=== PATIENT | male | born 1980 | race Caucasian/White ===

== ENCOUNTER 2024-06-14 03:10 | Inpatient (IN) | payer BC ==
[2024-06-14] MEDS ORDERED: Morphine 4 MG/ML VIAL ONE ×2 (03:27→08:03)
[2024-06-14] MEDS ORDERED: Ondansetron PF 4 MG/2 ML Vial ONE (03:27)
[2024-06-14] MEDS ORDERED: Lidocaine Viscous Sol 2% 15 ml UD Cup ONE (03:41)
[2024-06-14] MEDS ORDERED: Mag-Al 1200 mg/1200 mg/30 ML UDCUP ONE (03:41)
[2024-06-14 03:42] LABS: #Basophils 0.06 10x3/uL (0.0-0.2); #Eosinophils 0.19 10x3/uL (0.0-0.5); #Monocytes 0.85 10x3/uL (0.0-1.1); #Neutrophils 4.65 10x3/uL (1.5-8.4); %Basophils 0.7 % (0.0-2.0); %Eosinophils 2.2 % (0.0-6.0); %Lymphocytes 32.8 % (18.0-47.0); %Monocytes 9.9 % (0.0-10.0); %Neutrophils 54.2 % (40.0-75.0); Hematocrit 44.3 % (38.8-50.0); Hemoglobin 14.8 g/dL (13.5-17.5); Mean Corpuscular HGB CONC 33.4 g/dL (32.0-36.0); Mean Corpuscular Hemoglobin 28.2 pg (27.0-33.0); Mean Corpuscular Volume 84.4 fL (81.2-95.1); Platelet Count 214 10x3/uL (150-450); RBC Distribution Width 12.3 % (11.5-14.5); Red Blood Cell (RBC) Count 5.25 10x6/uL (4.32-5.72); White Blood Cell (WBC) Count 8.6 10x3/uL (3.5-10.5)
[2024-06-14 04:05] LABS: ALT (SGPT) 53 U/L (8-55); AST (SGOT) 42 U/L (5-34); Albumin 4.5 g/dL (3.5-5.0); Alkaline Phosphatase 46 U/L (40-110); Anion Gap 16 mmol/L (10-20); BUN (Urea Nitrogen) 22 mg/dL (8.9-20.6); Bilirubin, Total 1.4 mg/dL (0.2-1.2); Calc. Creatinine Clearance 0 mL/min (70-130); Calcium 9.5 mg/dL (7.8-10.44); Carbon Dioxide 20 mmol/L (22-29); Chloride 106 mmol/L (98-107); Estimated GFR 95; Globulin 2.6 g/dL (2.4-3.5); Glucose 123 mg/dL (70-105); Lipase 30 U/L (8-78); Potassium 3.8 mmol/L (3.5-5.1); Protein, Total 7.1 g/dL (6.0-8.3); Sodium 138 mmol/L (136-145); Troponin I Less than 0.010 ng/mL (< 0.028)
[2024-06-14] MEDS ORDERED: Droperidol 5 MG/2 ML VIAL ONE (04:05)
[2024-06-14] MEDS ORDERED: diphenhydrAMINE 50 MG/ML VIAL ONE (04:05)
[2024-06-14] MEDS ORDERED: HYDROmorphone 0.5 MG/0.5 ML SYRINGE ONE ×2 (05:34→08:08)
[2024-06-14] MEDS ORDERED: cefTRIAXone (ROCEPHIN) 1 GM VIAL ONE (08:03)
[2024-06-14 09:07] LABS: PTT 32.2 sec (22.0-33.0); Prothrombin Time 20.5 sec (9.5-12.1)
[2024-06-14] MEDS ORDERED: hydrALAZINE 20 MG/ML VIAL SLOW IVP PRN (09:56)
[2024-06-14] MEDS ORDERED: Ondansetron ODT 4 MG TAB PO PRN (09:59)
[2024-06-14] MEDS ORDERED: Acetaminophen 650 MG Suppository PR PRN (09:59)
[2024-06-14] MEDS ORDERED: Electrolyte Replacement Protocol 1 EACH FS SCH (10:15)
[2024-06-14] MEDS: Lidocaine 10 ML, Aluminum & Magnesium Hydroxide 30 ML SSW SCH (10:30)
[2024-06-14] MEDS: Enoxaparin 120 MG/0.8 ML SYRINGE SC SCH (10:50)
[2024-06-14] MEDS: Ondansetron PF 4 MG/2 ML Vial IVP PRN (11:18)
[2024-06-14] MEDS: Morphine 4 MG/ML VIAL SLOW IVP PRN (11:23)
[2024-06-14] MEDS: Potassium Chloride 20 MEQ in Lactated Ringer's 1,000 ML IV SCH (12:20)
[2024-06-14] MEDS ORDERED: Iopamidol 300 61% 100 ML VIAL FS ONE (14:34)
[2024-06-14 17:45] VITALS: BMI 38.0
[2024-06-14] MEDS: Famotidine/PF 20 mg/2ml Vial SLOW IVP SCH (21:36)
[2024-06-15] MEDS: Enoxaparin 120 MG/0.8 ML SYRINGE SC SCH (00:57)
[2024-06-15 04:41] LABS: #Basophils 0.04 10x3/uL (0.0-0.2); #Monocytes 0.34 10x3/uL (0.0-1.1); #Neutrophils 12.43 10x3/uL (1.5-8.4); %Basophils 0.3 % (0.0-2.0); %Lymphocytes 6.5 % (18.0-47.0); %Monocytes 2.5 % (0.0-10.0); %Neutrophils 90.3 % (40.0-75.0); Hematocrit 44.8 % (38.8-50.0); Hemoglobin 15.1 g/dL (13.5-17.5); Mean Corpuscular HGB CONC 33.7 g/dL (32.0-36.0); Mean Corpuscular Hemoglobin 28.9 pg (27.0-33.0); Mean Corpuscular Volume 85.8 fL (81.2-95.1); Mean Platelet Volume 10.3 fL (7.4-10.4); Platelet Count 187 10x3/uL (150-450); RBC Distribution Width 12.8 % (11.5-14.5); Red Blood Cell (RBC) Count 5.22 10x6/uL (4.32-5.72); White Blood Cell (WBC) Count 13.76 10x3/uL (3.5-10.5)
[2024-06-15 04:52] LABS: INR-International Normal Ratio 2.4; Prothrombin Time 24.6 sec (9.5-12.1)
[2024-06-15 04:58] LABS: Phosphorus 2.4 mg/dL (2.3-4.7)
[2024-06-15 05:03] LABS: ALT (SGPT) 36 U/L (8-55); AST (SGOT) 21 U/L (5-34); Albumin 3.9 g/dL (3.5-5.0); Alkaline Phosphatase 44 U/L (40-110); Anion Gap 15 mmol/L (10-20); BUN (Urea Nitrogen) 14 mg/dL (8.9-20.6); Bilirubin, Total 3.9 mg/dL (0.2-1.2); Calc. Creatinine Clearance 154 mL/min (70-130); Calcium 9.3 mg/dL (7.8-10.44); Carbon Dioxide 21 mmol/L (22-29); Chloride 102 mmol/L (98-107); Estimated GFR 91; Globulin 2.8 g/dL (2.4-3.5); Glucose 125 mg/dL (70-105); Magnesium 1.8 mg/dL (1.6-2.6); Potassium 4.2 mmol/L (3.5-5.1); Protein, Total 6.7 g/dL (6.0-8.3); Sodium 134 mmol/L (136-145)
[2024-06-15] MEDS: Magnesium 2 GM/50 ML(in water) 2 GM in Premix 1 BAG IVPB SCH (09:14)
[2024-06-15] MEDS: cefTRIAXone\\ROCEPHIN 1 GM in Sodium Chloride 0.9% 100 ML IVPB SCH (09:15)
[2024-06-15 12:07] LABS: INR-International Normal Ratio 2.2; Prothrombin Time 23.1 sec (9.5-12.1)
[2024-06-15] MEDS: Acetaminophen 325 MG TAB PO PRN (18:32)
[2024-06-16 04:25] LABS: #Basophils 0.03 10x3/uL (0.0-0.2); #Eosinophils 0.18 10x3/uL (0.0-0.5); #Monocytes 1.35 10x3/uL (0.0-1.1); #Neutrophils 12.43 10x3/uL (1.5-8.4); %Basophils 0.2 % (0.0-2.0); %Eosinophils 1.2 % (0.0-6.0); %Neutrophils 82.6 % (40.0-75.0); Hematocrit 40.4 % (38.8-50.0); Hemoglobin 13.6 g/dL (13.5-17.5); Mean Corpuscular HGB CONC 33.7 g/dL (32.0-36.0); Mean Corpuscular Hemoglobin 28.9 pg (27.0-33.0); Mean Platelet Volume 10.3 fL (7.4-10.4); Platelet Count 151 10x3/uL (150-450); RBC Distribution Width 12.7 % (11.5-14.5); White Blood Cell (WBC) Count 15.05 10x3/uL (3.5-10.5)
[2024-06-16 04:37] LABS: INR-International Normal Ratio 1.5; Prothrombin Time 16.1 sec (9.5-12.1)
[2024-06-16 04:46] LABS: ALT (SGPT) 29 U/L (8-55); AST (SGOT) 21 U/L (5-34); Albumin 3.6 g/dL (3.5-5.0); Alkaline Phosphatase 64 U/L (40-110); Anion Gap 14 mmol/L (10-20); BUN (Urea Nitrogen) 13 mg/dL (8.9-20.6); Bilirubin, Total 4.5 mg/dL (0.2-1.2); Calc. Creatinine Clearance 162 mL/min (70-130); Calcium 8.7 mg/dL (7.8-10.44); Carbon Dioxide 22 mmol/L (22-29); Chloride 102 mmol/L (98-107); Estimated GFR 97; Globulin 2.4 g/dL (2.4-3.5); Glucose 119 mg/dL (70-105); Magnesium 2.2 mg/dL (1.6-2.6); Potassium 4.4 mmol/L (3.5-5.1); Sodium 134 mmol/L (136-145)
[2024-06-16 07:14] LABS: Bilirubin, Direct 0.5 mg/dL (0.1-0.3); Bilirubin, Total 4.5 mg/dL (0.2-1.2)
[2024-06-16] MEDS ORDERED: Lidocaine 4% PF 5 ML AMP ONE (07:21)
[2024-06-16] MEDS ORDERED: Lidocaine 2% PF 5 ML VIAL ONE (07:21)
[2024-06-16] MEDS ORDERED: PROPOFOL 20 ML ONE (07:24)
[2024-06-16] MEDS ORDERED: Bupivacaine HCl 0.5%/Epinephrine 1:200,000/PF 30 ml Vial ONE (07:25)
[2024-06-16] MEDS ORDERED: Glucagon 1 MG/ML KIT ONE (07:25)
[2024-06-16] MEDS ORDERED: fentaNYL 50 mcg/mL 1 mL Vial ONE ×4 (07:48→10:30)
[2024-06-16] MEDS ORDERED: Sevoflurane 250 ML INH ANEST BOTTLE ONE (08:12)
[2024-06-16] MEDS ORDERED: SUGAMMADEX SODIUM 200 MG/2 ML VIAL ONE (09:22)
[2024-06-16] MEDS: HYDROcodone/Acetaminophen 5/325 mg Tablet PO PRN ×2 (13:44→16:50)
[2024-06-16] MEDS ORDERED: Morphine 2 MG/ML VIAL SLOW IVP PRN (16:46)
[2024-06-17 03:38] LABS: INR-International Normal Ratio 1.3; Prothrombin Time 13.7 sec (9.5-12.1)
[2024-06-17 03:48] LABS: Hematocrit 35.9 % (38.8-50.0); Hemoglobin 12.2 g/dL (13.5-17.5); Mean Corpuscular Volume 85.5 fL (81.2-95.1); Mean Platelet Volume 10.3 fL (7.4-10.4); Platelet Count 149 10x3/uL (150-450); White Blood Cell (WBC) Count 10.18 10x3/uL (3.5-10.5)
[2024-06-17 03:49] LABS: ALT (SGPT) 48 U/L (8-55); AST (SGOT) 32 U/L (5-34); Albumin 2.8 g/dL (3.5-5.0); Alkaline Phosphatase 53 U/L (40-110); Anion Gap 11 mmol/L (10-20); BUN (Urea Nitrogen) 19 mg/dL (8.9-20.6); Bilirubin, Direct 0.6 mg/dL (0.1-0.3); Bilirubin, Total 1.7 mg/dL (0.2-1.2); Calc. Creatinine Clearance 189 mL/min (70-130); Calcium 8.5 mg/dL (7.8-10.44); Carbon Dioxide 23 mmol/L (22-29); Chloride 106 mmol/L (98-107); Estimated GFR 110; Globulin 3.3 g/dL (2.4-3.5); Glucose 138 mg/dL (70-105); Potassium 4.5 mmol/L (3.5-5.1); Protein, Total 6.1 g/dL (6.0-8.3); Sodium 135 mmol/L (136-145)
[2024-06-17 04:09] LABS: Band 7 % (5-11); Lymphocytes 9 % (21-51); MDiff Complete? YES; Monocytes 3 % (0-10); Neutrophil 79 % (42-75); Platelet Adequacy Comment Appears Adequate; Reactive Lymphocytes 2 % (0-10)
[2024-06-17] MEDS: Pantoprazole 40 MG DR.TAB PO SCH (11:19)
[2024-06-17] MEDS: Enoxaparin 120 MG/0.8 ML SYRINGE SC SCH (11:19)
[2024-06-17] MEDS: Piperacillin/Tazobactam 3.375 GM in Sodium Chloride 0.9% 100 ML IVPB SCH ×2 (14:08→19:23)
[2024-06-17] MEDS: Warfarin Sodium 10 MG TAB PO SCH (16:59)
[2024-06-18 03:48] LABS: INR-International Normal Ratio 1.2; Prothrombin Time 12.9 sec (9.5-12.1)
[2024-06-18] MEDS: Pantoprazole 40 MG DR.TAB PO SCH (08:32)
[2024-06-18] MEDS: Senokot S 8.6-50 MG TAB PO PRN (12:23)
[2024-06-19 04:28] LABS: #Basophils Less than 0.03 10x3/uL (0.0-0.2); #Eosinophils 0.16 10x3/uL (0.0-0.5); #Monocytes 1.31 10x3/uL (0.0-1.1); #Neutrophils 5.06 10x3/uL (1.5-8.4); %Basophils 0.2 % (0.0-2.0); %Eosinophils 1.9 % (0.0-6.0); %Lymphocytes 22.4 % (18.0-47.0); %Monocytes 15.4 % (0.0-10.0); %Neutrophils 59.4 % (40.0-75.0); Hematocrit 37.6 % (38.8-50.0); Hemoglobin 12.1 g/dL (13.5-17.5); Mean Corpuscular HGB CONC 32.2 g/dL (32.0-36.0); Mean Corpuscular Hemoglobin 28.2 pg (27.0-33.0); Mean Corpuscular Volume 87.6 fL (81.2-95.1); Mean Platelet Volume 9.8 fL (7.4-10.4); Platelet Count 209 10x3/uL (150-450); RBC Distribution Width 13.4 % (11.5-14.5); Red Blood Cell (RBC) Count 4.29 10x6/uL (4.32-5.72); White Blood Cell (WBC) Count 8.52 10x3/uL (3.5-10.5)
[2024-06-19 04:40] LABS: INR-International Normal Ratio 1.7; Prothrombin Time 18.2 sec (9.5-12.1)
[2024-06-19 04:56] LABS: ALT (SGPT) 43 U/L (8-55); AST (SGOT) 26 U/L (5-34); Albumin 2.8 g/dL (3.5-5.0); Alkaline Phosphatase 62 U/L (40-110); Anion Gap 13 mmol/L (10-20); BUN (Urea Nitrogen) 15 mg/dL (8.9-20.6); Bilirubin, Total 1.6 mg/dL (0.2-1.2); Calc. Creatinine Clearance 193 mL/min (70-130); Calcium 8.8 mg/dL (7.8-10.44); Carbon Dioxide 22 mmol/L (22-29); Chloride 104 mmol/L (98-107); Estimated GFR 110; Globulin 3.2 g/dL (2.4-3.5); Glucose 100 mg/dL (70-105); Potassium 4.1 mmol/L (3.5-5.1); Sodium 135 mmol/L (136-145)
[2024-06-19 08:46] VITALS: BP 129/73; TEMP 98.5
[2024-06-19] MEDS ORDERED: Warfarin Sodium 10 MG TAB PO SCH (09:00)
[2024-06-20] MEDS ORDERED: Warfarin Sodium 5 MG TAB PO SCH (09:00)
== END 2024-06-19 11:12 | disposition home or self-care (01) | DRG 418 ==
LOC: CSHERS 03:10 → INTOOBSV 08:57 → CSHTELE 08:57 → OBSVTOIN 06-16 09:49
PROVIDERS: ADMIT Hospitalist; ATTEND Family Medicine
PROC: 0FT44ZZ Resection of Gallbladder, Percutaneous Endoscopic Approach (ICD-10-PCS; principal; 2024-06-16)
DX: K80.00 Calculus of gallbladder with acute cholecystitis without obstruction (principal); D68.2 Hereditary deficiency of other clotting factors; E78.5 Hyperlipidemia, unspecified; K21.9 Gastro-esophageal reflux disease without esophagitis; Z88.0 Allergy status to penicillin; Z90.49 Acquired absence of other specified parts of digestive tract; Z79.01 Long term (current) use of anticoagulants; Z79.899 Other long term (current) drug therapy; E80.6 Other disorders of bilirubin metabolism
CPT/HCPCS: 36415; 36430; 74177; 76705; 80053; 82247; 82248; 83690; 83735; 84100; 84484; 85025; 85610; 85730; 86850; 86900; 86901; 88304; 93005; 94660; 94760; 94762; 96372; 96374; 96375; 96376; C1889; G0378; J0696; J1171; J1200; J1611; J1650; J1790; J2270; J2405; J2543; J2704; J3010; J3475; J3480; J3490; J7120; P9059; Q9967